=== PATIENT | female | born 1985 | race Caucasian/White ===

== ENCOUNTER 2018-09-14 15:32 | Emergency (ER) | payer MEDICAID ==
[~2018-09-14] VITALS: Ht 152.4 cm; Wt 58.1 kg
[2018-09-14 15:49] VITALS: Ht 152.4 cm; Wt 58.1 kg
[2018-09-14 20:47] VITALS: BP 141/84
== END 2018-09-14 21:55 | disposition home or self-care (01) ==
LOC: ED 15:32
DX: N75.1 Abscess of Bartholin's gland (principal); Z88.6 Allergy status to analgesic agent
CPT/HCPCS: J2001; J2270